=== PATIENT | female | born 1950 | race Two or more races ===

== ENCOUNTER 2024-08-16 09:58 | Emergency (ER) | payer OTHER ==
[~2024-08-16] VITALS: Ht 165.1 cm; Wt 59.9 kg
[2024-08-16] MEDS ORDERED: LYRICA50 MG PO (10:37)
[2024-08-16] MEDS ORDERED: EUTHYROX50 MCG PO (10:37)
[2024-08-16] MEDS ORDERED: CLONAZEPAM0.5 MG PO (10:37)
[2024-08-16 12:16] LABS: BASO % 0.6 % (0.1-1.2); EOS # 0.09 (0.04-0.54); EOS % 1.1 % (0.7-7.0); HEMATOCRIT 41.4 % (34.1-44.9); HEMOGLOBIN 13.7 g/dL (11.2-15.7); LYMPH # 2.36 (1.18-3.74); LYMPH % 30.1 % (19.3-53.1); MEAN CORPUSCULAR HEMOGLOBIN 28.6 pg (25.6-32.2); MONO % 6.4 % (4.7-12.5); NEUT # 4.83 (1.56-6.13); NEUT % 61.7 % (34.0-71.1); PLATELET COUNT 283 K/uL (163-369); RED BLOOD COUNT 4.79 M/uL (3.93-5.22); RED CELL DISTRIBUTION WIDTH 13.5 % (11.6-14.4)
[2024-08-16 12:42] LABS: INFLUENZA A AG NEGATIVE (NEGATIVE); INFLUENZA B AG NEGATIVE (NEGATIVE)
[2024-08-16 12:43] LABS: COVID-19 AG NEGATIVE (NEGATIVE)
[2024-08-16 12:53] LABS: ALBUMIN 3.8 gm/dL (3.4-5.0); BILIRUBIN TOTAL 0.5 mg/dL (0.3-1.2); CALCIUM 9.7 mg/dL (8.5-10.1); CREATININE SERUM 0.8 mg/dL (0.55-1.02); GFR 70.51; GLOBULINA 4.3 G/DL (2.4-3.5); POTASSIUM 4.16 mEq/L (3.5-5.1); TOTAL PROTEIN 8.1 gm/dL (6.4-8.2)
[2024-08-16] MEDS ORDERED: ANTIVERT25 M2 PO (13:06)
== END 2024-08-16 13:24 | disposition home or self-care (01) ==
LOC: ER 09:58
PROVIDERS: General Practice
DX: R42 Dizziness and giddiness (principal); Z91.018 Allergy to other foods; Z20.822 Contact with and (suspected) exposure to COVID-19